=== PATIENT | male | born 1945 | race Caucasian/White ===

== ENCOUNTER 2022-04-01 09:33 | Emergency (ER) | payer OTHER ==
[~2022-04-01] VITALS: Ht 170.2 cm; Wt 95.3 kg
[2022-04-01 09:38] VITALS: BP 162/90
--- NOTE | 2022-04-01 09:43 | NUR ---
AMBULATED TO BED 11 WITH PERSONAL CANE
--- NOTE | 2022-04-01 09:49 | NUR ---
77 Y/O MALE BIB SELF C/O RIGHT ARM, RIGHT WRIST AND BILATERAL KNEE PAIN X 4DAYS, UNABLE TO PERFORM PHALEN TEST. DENIES ANY TRAUMA/INJURY, STATES TAKING TYLENOL WITH RELIEF NKA PMH: HTN
--- NOTE | 2022-04-01 10:39 | NUR ---
DR VILLASENOR AT BEDSIDE FOR EVAL
[2022-04-01] MEDS ORDERED: KETOROLAC 30 MG/ML VIAL IM ONE (10:50)
--- NOTE | 2022-04-01 11:15 | NUR ---
X-Ray at bedside.
[2022-04-01] MEDS ORDERED: NAPR-1704 PO (12:21)
[2022-04-01] MEDS ORDERED: ACET-8386 PO (12:21)
[2022-04-01 12:32] VITALS: BP 121/76
--- NOTE | 2022-04-01 12:32 | NUR ---
Patient discharged with v/s stable. Written and verbal after care instructions given and explained. Patient alert, oriented and verbalized understanding of instructions. Ambulatory with steady gait. All questions addressed prior to discharge. ID band removed. Patient advised to follow up with PMD. Rx of NAPROXEN, NORCO 5-325 given. Patient educated on indication of medication including possible reaction and side effects. Opportunity to ask questions provided and answered.
== END 2022-04-01 12:32 | disposition home or self-care (01) ==
LOC: MED 09:33
DX: M19.011 Primary osteoarthritis, right shoulder (principal); M17.0 Bilateral primary osteoarthritis of knee; I10 Essential (primary) hypertension; M19.90 Unspecified osteoarthritis, unspecified site; F17.200 Nicotine dependence, unspecified, uncomplicated; Z71.6 Tobacco abuse counseling; Z79.891 Long term (current) use of opiate analgesic; Z79.1 Long term (current) use of non-steroidal anti-inflammatories (NSAID)
CPT/HCPCS: 73030; 73562; 96372; 99284; J1885